=== PATIENT | female | born 1955 | race Caucasian/White ===

== ENCOUNTER → 2017-06-23 | Outpatient (CLI) | payer BC ==
[~2017-06-23] MED LIST: BUPR100T4 PO; CITA10TA8 PO; CYAN100020; LEVO75TA PO; MULT-506 PO; PRM/45 PO; TRAZ50TA35 PO
--- NOTE | 2017-06-23 17:24 | DIAGNOSTIC IMAGING REPORT ---
LUMBAR SPINE 5 VIEWS CLINICAL HISTORY: Low back pain and right lower extremity radiculopathy. FINDINGS: Five views of the lumbar spine are obtained. No prior studies are available for comparison at the time of dictation. The skeletal structures are osteopenic. There is no radiographic evidence of fracture or malalignment. Vertebral body height and alignment are maintained throughout the lumbar spine. Small anterior osteophytes are seen throughout. The transverse and spinous processes appear intact. There is mild to moderate degenerative disc space narrowing seen at L5-S1. Only mild disc space narrowing is seen at the remaining lumbar levels. There is multilevel degenerative endplate sclerosis. The bony pelvis is intact as imaged. The sacroiliac joints are normal in appearance. Surgical clips are present in the pelvis. There is a nonobstructed abdominal bowel gas pattern. A nonobstructing left renal calculus is questioned on the frontal view. IMPRESSION: 1. No acute bony abnormality is seen involving the lumbar spine. 2. Osteopenia and spondylotic change as above. Dictated: 06/23/2017 4:34 PM Transcribed: 06/23/2017 5:23 PM [place] Electronically signed by: Rivas Sharpe M.D. 06/23/2017 5:25 PM Dictated Date/Time: 06/23/2017 4:34 PM
== END | disposition home or self-care (01) ==
LOC: C.RAD1850 15:36
PROVIDERS: ATTEND Family Medicine
DX: M85.88 Other specified disorders of bone density and structure, other site (principal); M48.07 Spinal stenosis, lumbosacral region

== ENCOUNTER → 2017-11-24 | Outpatient (CLI) | payer OTHER | END | disposition home or self-care (01) | LOC: C.PAPS 15:46 | PROVIDERS: ATTEND Obstetrics & Gynecology | DX: Z12.4 Encounter for screening for malignant neoplasm of cervix (principal); Z78.0 Asymptomatic menopausal state ==

== ENCOUNTER → 2017-11-24 | Outpatient (CLI) | payer OTHER | END | disposition home or self-care (01) | LOC: C.LABSPEC 17:33 | PROVIDERS: ATTEND Obstetrics & Gynecology | DX: N89.8 Other specified noninflammatory disorders of vagina (principal) ==

== ENCOUNTER → 2018-01-15 | Outpatient (CLI) | payer OTHER ==
--- NOTE | 2018-01-16 07:46 | MAMMOGRAPHY REPORT ---
BILATERAL DIGITAL SCREENING MAMMOGRAM TOMOSYNTHESIS WITH CAD: 01/15/2018 CLINICAL HISTORY: Routine screening. The patient reported to the technologist that she has had bilat eral breast tenderness for 2 weeks. TECHNIQUE: Breast tomosynthesis in addition to standard 2D mammography was performed. Current study was also evaluated with a Computer Aided Detection (CAD) system. COMPARISON: Comparison is made to exams dated: 12/03/2016 mammogram, 08/16/2015 mammogram, 02/25/2014 mammogram, and 02/04/2011 mammogram - [facility]. BREAST COMPOSITION: The tissue of both breasts is heterogeneously dense, which may obscure small mas ses. FINDINGS: No suspicious masses, calcifications, or areas of architectural distortion are noted in ei ther breast. There has been no significant interval change compared to prior exams. Bilateral benign vascular calcifications are again noted. IMPRESSION: ACR BI-RADS CATEGORY 2: BENIGN There is no mammographic evidence of malignancy. A 1 year screening mammogram is recommended. Also r ecommend clinical follow-up for bilateral breast tenderness. The patient will receive written notifi cation of the results. Approximately 10% of breast cancers are not detected with mammography. A negative mammographic report should not delay biopsy if a clinically suggestive mass is present. Margot Ramirez M.D. ah/:01/15/2018 16:39:46 Director Human Services: Gely SPAERS)(M), [facility] letter sent: Normal 1/2 BI-RADS Code: ACR BI-RADS Category 2: Benign
== END | disposition home or self-care (01) ==
LOC: C.MAMM 11:36
PROVIDERS: ATTEND Family Medicine
DX: Z12.31 Encounter for screening mammogram for malignant neoplasm of breast (principal)

== ENCOUNTER 2024-05-14 11:05 | Observation (INO) ==
--- NOTE | 2024-05-05 13:57 | Anesthesiology Consultation ---
Date of Service May 05, 2024 Assessment & Plan (1) Upper airway cough syndrome: - check CBC with diff and BMP STAT am DOS. Fluid orders to anesthesiologist review of BMP DOS. - [place] pulmonology response: "If she is without complaints see no reason to delay surgery." I spoke with patient and she states symptoms fully resolved since 04/02/24 visit. - pulmonology office visit 04/02/24 [place]: "...Asthma: Patient was reassured that her spirometry and exhaled nitric oxide are normal...discussed simplifying her regiment to using Dulera on a daily basis or potentially discontinuing it and monitoring her symptoms. She is taken it under advisement and will consider her options. Cough: Suspect upper airway cough syndrome. Recommended restarting a regiment of chlorpheniramine, Sudafed, Flonase, and saline sinus irrigation. If she develops dry eyes associated with the antihistamine, this medication can be discontinued. Will plan on checking back with her in about 6 weeks time as she is scheduled to undergo her hysterectomy in May and needs to be in a stable respiratory standpoint. If she has continued issues, additional assessment including IgE level, eosinophil count, and referral to speech therapy for potential vocal cord dysfunction might be appropriate..." - Per treating machine operator on 05/05/24: No known infectious disease contacts, current infectious disease symptoms in past 10 days or COVID positive test result in the past 30 days. Chart Review Chart Review: Acceptable Risk for Surgery and Patient NOT seen in Pre Admission Testing History Surgery Operation Date: 05/14/24 09:40 Proposed Procedures p Robotic Hysterectomy, Bilateral Salpingo-Oophorectomy, Robotic Sacral Colpopexy, Cystoscopy - Jovi Anderson MD s Mid Urethral Sling - Jovi Anderson MD Height/Weight Height: 5 ft 6 in Weight: 80.739 kg Allergies Allergy/AdvReac Type Severity Reaction Status Date / Time codeine AdvReac Unknown "makes me Verified 05/05/24 12:20 feel crazy" meloxicam [From Mobic] AdvReac stomach Verified 05/05/24 12:20 pain Medications Home Medications Medication Instructions Recorded Confirmed Last Taken citalopram 20 mg tablet (Celexa) 20 mg PO QAM 09/09/18 05/05/24 10/06/18 levalbuterol tartrate 45 1 inh inhalation Q6H PRN Shortness 09/09/18 05/05/24 Unknown mcg/actuation aerosol inhaler Of Breath trazodone 50 mg tablet 50 mg PO HS PRN insomnia 11/28/21 05/05/24 Unknown ibuprofen 200 mg tablet (Advil) 400 mg (2 x 200 mg) PO DAILY PRN 07/08/22 05/05/24 Unknown pain #10 tabs beclomethasone dipropionate 80 1 inh inhalation BID #10.6 grams 08/12/22 05/05/24 Unknown mcg/actuation HFA breath activated aerosol (Qvar RediHaler) diclofenac sodium 1 % topical gel 2 g topical QID #100 grams 08/12/22 05/05/24 Unknown mometasone-formoterol HFA 200 2 puff inhalation BID #1 inhaler 06/18/23 05/05/24 Unknown mcg-5 mcg/actuation aerosol inhaler (Dulera) pantoprazole 40 mg tablet,delayed 40 mg PO Q12H #60 tabs 09/22/23 05/05/24 Unknown release estradiol 0.5 mg tablet 0.5 mg PO DAILY #90 tabs 11/10/23 05/05/24 Unknown fluticasone propionate 50 1 spray intranasal BID #18.2 mL 04/02/24 05/05/24 Unknown mcg/actuation nasal spray,suspension (Flonase Allergy Relief) sodium chloride, sodium See Rx Instructions .Route 04/02/24 05/05/24 Unknown bicarb-nasal rinse squeeze bottle .COMPLEX #50 ea with packet (Neilmed Sinus Rinse Complete with packet) bupropion HCl 300 mg 24 hr tablet, 300 mg PO QAM 05/05/24 05/05/24 Unknown extended release vuk-zjpvymvuvxhgv-bzvpjdmsvnmzc 1 tab PO QAM 05/05/24 05/05/24 Unknown tablet levothyroxine 125 mcg tablet 125 mcg PO QAM 05/05/24 05/05/24 Unknown lifitegrast 5 % eye drops in a 1 drp OPB BID 05/05/24 05/05/24 Unknown dropperette (Xiidra) medroxyprogesterone 2.5 mg tablet 2.5 mg PO QAM 05/05/24 05/05/24 Unknown Past Medical History Medical History Asthma hx, inhalers x2 and prn inh Chronic rhinitis Circadian rhythm sleep disorder, shift work type Depression Former smoker GERD (gastroesophageal reflux disease) only takes med prn, controls with diet Hx of hyperlipidemia Hypothyroidism IBS (irritable bowel syndrome) controls with diet Menopausal symptoms Organic hypersomnia Rhinitis Upper airway cough syndrome Vaginal discharge Past Family History Family History Mother Family history of reaction to anesthesia SLOW TO WAKE UP Dementia Father Family history of diabetes mellitus Diabetes Lymphoma, T-cell Sister Glaucoma Denies family history of Ovarian cancer Breast cancer Colorectal cancer Past Surgical History Surgical History History of appendectomy History of bilateral tubal ligation History of cataract extraction with lens replacement rt/lt History of colonoscopy History of dilatation and curettage History of esophagogastroduodenoscopy (EGD) History of foot surgery LEFT History of repair of rotator cuff right History of vein stripping 1985 Social History Smoking Status: Former smoker tobacco type: cigarettes Do You Dip or Chew Tobacco: No Smoking End Date: years ago Hx Alcohol Use: Yes Alcohol type: wine alcohol intake frequency: a few times a week Hx Substance Use: No substance use type: does not use Testing Electrocardiogram Date: 03/04/24 NSR, rate 61 bpm Possible LA enlargement Incomplete RBBB Nonspecific T wave abnormality Cannot rule out anterior infarct, age undetermined Chest X-Ray Date: 06/13/23 No acute process. Pulmonary Function Test Date: 04/13/24 FEV1 and FVC preserved however there appears to be truncation of the expiratory limb and clinical correlation is required.
--- NOTE | 2024-05-14 05:59 | History & Physical Report ---
Date of Service May 14, 2024 Assessment & Plan (1) Uterovaginal prolapse, incomplete: Plan: Patient has tried several pessaries in the past without success. We reviewed surgical options: 1. Vaginal hysterectomy, bso, uterosacral suspension, anterior colporrhaphy Vs 2. Robotic hysterectomy, bso, sacral colpopexy with mesh. Patient prefers robotic hysterectomy, bso, sacral colpopexy, cystoscopy. Risks of infection, bleeding, injury, pain, mesh exposure, adhesions, urinary incontinence, urinary retention were reviewed. Informed consent confirmed. Present on Admission?: Yes Admission and Anticipated Discharge Date Admission Date: 05/14/2024 Anticipated date of discharge: 05/15/24 History of Present Illness Chief Complaint: Vaginal prolapse Primary Care Provider: Blaise Mccrary MD Svitlana Carmona is a 67 year old female P 4 with uterovaginal prolapse here for robotic hysterectomy, bso, sacral colpopexy, cystoscopy. For the past few years, Svitlana Carmona has a vaginal bulge that becomes more symptomatic when she is on her feet or when lifting heavy items. It retracts when she sleeps overnight. No bleeding. Tried several pessaries but could not get the correct fit (either too small and dislodged or too big causing discomfort) Did have plans to have surgical correction, but was cancelled during the pandemic. Denies incontinence. Has occasional urgency, but denies frequency or nocturia. Feels that she empties well. On occasion, will have fecal urgency with loose stool. Denies incontinence. Otherwise will have normal bowel movements every day or every other day. Allergies Allergy/AdvReac Type Severity Reaction Status Date / Time codeine AdvReac Unknown "makes me Verified 05/05/24 12:20 feel crazy" meloxicam [From Mobic] AdvReac stomach Verified 05/05/24 12:20 pain Home Medications Medication Instructions Recorded Confirmed Type citalopram 20 mg tablet (Celexa) 20 mg PO QAM 09/09/18 05/05/24 History levalbuterol tartrate 45 1 inh inhalation Q6H PRN Shortness 09/09/18 05/05/24 History mcg/actuation aerosol inhaler Of Breath trazodone 50 mg tablet 50 mg PO HS PRN insomnia 11/28/21 05/05/24 History ibuprofen 200 mg tablet (Advil) 400 mg (2 x 200 mg) PO DAILY PRN 07/08/22 05/05/24 Rx pain #10 tabs beclomethasone dipropionate 80 1 inh inhalation BID #10.6 grams 08/12/22 05/05/24 Rx mcg/actuation HFA breath activated aerosol (Qvar RediHaler) diclofenac sodium 1 % topical gel 2 g topical QID #100 grams 08/12/22 05/05/24 Rx mometasone-formoterol HFA 200 2 puff inhalation BID #1 inhaler 06/18/23 05/05/24 Rx mcg-5 mcg/actuation aerosol inhaler (Dulera) pantoprazole 40 mg tablet,delayed 40 mg PO Q12H #60 tabs 09/22/23 05/05/24 Rx release estradiol 0.5 mg tablet 0.5 mg PO DAILY #90 tabs 11/10/23 05/05/24 Rx fluticasone propionate 50 1 spray intranasal BID #18.2 mL 04/02/24 05/05/24 Rx mcg/actuation nasal spray,suspension (Flonase Allergy Relief) sodium chloride, sodium See Rx Instructions .Route 04/02/24 05/05/24 Rx bicarb-nasal rinse squeeze bottle .COMPLEX #50 ea with packet (Neilmed Sinus Rinse Complete with packet) bupropion HCl 300 mg 24 hr tablet, 300 mg PO QAM 05/05/24 05/05/24 History extended release fmj-skgdtkusqsnuo-fzpsulnimthkk 1 tab PO QAM 05/05/24 05/05/24 History tablet levothyroxine 125 mcg tablet 125 mcg PO QAM 05/05/24 05/05/24 History lifitegrast 5 % eye drops in a 1 drp OPB BID 05/05/24 05/05/24 History dropperette (Xiidra) medroxyprogesterone 2.5 mg tablet 2.5 mg PO QAM 05/05/24 05/05/24 History Past Med/Surg History Problem List (Updated 05/14/24 @ 05:57 by Jovi Anderson MD) Uterovaginal prolapse, incomplete Upper airway cough syndrome Encounter for routine gynecological examination Overweight Dietary counseling and surveillance IBS (irritable bowel syndrome) Depression with anxiety Hyperlipidemia Obesity Female genital prolapse Postmenopausal HRT (hormone replacement therapy) GERD (gastroesophageal reflux disease) Hypothyroidism Asthma USES A COUPLE TIMES PER MONTH Shingles (Acute) 09/29/15 Rash and nonspecific skin eruption (Acute) 06/04/16 Allergic reaction (Acute) Medical History Asthma hx, inhalers x2 and prn inh Chronic rhinitis Circadian rhythm sleep disorder, shift work type Depression Former smoker GERD (gastroesophageal reflux disease) only takes med prn, controls with diet Hx of hyperlipidemia Hypothyroidism IBS (irritable bowel syndrome) controls with diet Menopausal symptoms Organic hypersomnia Rhinitis Upper airway cough syndrome Vaginal discharge Surgical History History of appendectomy History of bilateral tubal ligation History of cataract extraction with lens replacement rt/lt History of colonoscopy History of dilatation and curettage History of esophagogastroduodenoscopy (EGD) History of foot surgery LEFT History of repair of rotator cuff right History of vein stripping 1984 Family History Mother Family history of reaction to anesthesia SLOW TO WAKE UP Dementia Father Family history of diabetes mellitus Diabetes Lymphoma, T-cell Sister Glaucoma Denies family history of Ovarian cancer Breast cancer Colorectal cancer Social History (Updated 03/31/24 @ 10:16 by Samanta Morales LPN) Smoking Status: Former smoker Tobacco Type: Cigarettes Second Hand Exposure: Yes (hx as child); Do You Dip or Chew Tobacco: No; Hx Alcohol Use: Yes Alcohol type: wine Hx Substance Use: No Preferred Language: Frisian Communication Ability: Effective Hydraulic Technician Required: No Beliefs That Will Affect Care: None Current Living Situation: Alone Current Living Situation Comment: dtr will stay after sx. Feels Safe at Home: Yes Assistive Devices: Glasses Review of Systems Review of Systems: All systems reviewed & are unremarkable except as noted in HPI & below Physical Exam Constitutional: WD/WN, vitals as above Eyes: PERRL, conjunctivae normal, anicteric sclerae ENMT: external ear and nose normal, oropharynx normal Neck: trachea midline, no thyromegaly Respiratory: normal respiratory effort Cardiovascular: RRR, no murmur, no edema Gastrointestinal (Abdomen): normal bowel sounds, soft, nontender, no hepatosplenomegaly Musculoskeletal: no cyanosis or clubbing, extremities motor strength 5/5 Skin: no rashes, warm and dry Psychiatric: A+Ox3, euthymic affect Code Status & VTE Plan VTE Prophylaxis Plan VTE Prophylaxis will be ordered: Yes
[2024-05-14] MEDS ORDERED: ONDANSETRON INJ 2 MG/ML 2 ML VIAL IV PRN ×2 (11:17→16:21)
[2024-05-14] MEDS ORDERED: PROMETHAZINE HCL 6.25 MG in SODIUM CHLORIDE 0.9% 50 ML IV PRN (11:17)
[2024-05-14] MEDS ORDERED: HYDROmorphone INJ 1 MG/ML SYRINGE IV PRN (11:17)
[2024-05-14] MEDS ORDERED: ATROPINE SULFATE 0.1 MG/ML 10ML SYR IV PRN (11:17)
[2024-05-14] MEDS ORDERED: ePHEDrine sulfate 50 MG/ML AMP IV PRN (11:17)
[2024-05-14 11:32] LABS: Basophils # (auto) 0.06 K/uL (0.00-0.20); Basophils % (auto) 0.8 %; Eosinophils % (auto) 3.8 %; Hematocrit (blood only) 42.2 % (37.0-47.0); Immature Granulocytes # (auto) 0.01 K/uL (0.01-0.20); Immature Granulocytes % (auto) 0.1 %; Lymphocytes # (auto) 3.36 K/uL (1.20-3.40); Lymphocytes % (auto) 42.8 %; Mean Corpuscular Hemoglobin 31.9 pg (25.0-34.0); Mean Corpuscular Hgb Conc 33.2 g/dL (32.0-36.0); Mean Corpuscular Volume 96.1 fL (80.0-100.0); Monocytes # (auto) 0.57 K/uL (0.11-0.59); Monocytes % (auto) 7.3 %; Neutrophils # (auto) 3.55 K/uL (1.40-6.50); Neutrophils % (auto) 45.2 %; Platelet Count 291 K/uL (130-400); Red Blood Count 4.39 M/uL (4.20-5.40); White Blood Count 7.85 K/ul (4.8-10.8)
[2024-05-14 11:47] LABS: BUN Creatinine Ratio 17.6 (10-20); Calcium 9.6 mg/dl (8.6-10.3); Creatinine Clr Calc Pharmacy 79.4 ml/min; Est GFR (African American) 97.2 ml/min; Est GFR (Non-African American) 83.8 ml/min
[2024-05-14] MEDS: SODIUM CHLORIDE 0.9% 1,000 ML IV SCH (12:12)
[2024-05-14] MEDS ORDERED: DEXAMETHASONE SOD INJ 4 MG/ML VIAL ONE (12:13)
[2024-05-14] MEDS ORDERED: PHENYLEPHRINE HCL 10 MG/ML VIAL ONE (12:13)
[2024-05-14] MEDS ORDERED: PROPOFOL IV EMULSION 10 MG/ML 20 ML VIAL IV ONE (12:13)
[2024-05-14] MEDS ORDERED: LIDOCAINE 2% 2 ML VIAL/AMP(20MG/ML) INFIL ONE (12:13)
[2024-05-14] MEDS ORDERED: ONDANSETRON INJ 2 MG/ML 2 ML VIAL ONE (12:13)
[2024-05-14] MEDS ORDERED: KETOROLAC 30 MG/ML VIAL ONE (12:13)
[2024-05-14] MEDS ORDERED: ROCURONIUM BROMIDE 10 MG/ML 5 ML VIAL IV ONE ×2 (12:13→14:04)
[2024-05-14] MEDS ORDERED: SUGAMMADEX SODIUM 200 MG/2 ML VIAL IV ONE (12:14)
[2024-05-14] MEDS ORDERED: MIDAZOLAM HCL 1 MG/ML 2ML VIAL ONE (12:14)
[2024-05-14] MEDS ORDERED: fentaNYL citrate PF 100 MCG/2 ML VIAL ONE (12:14)
[2024-05-14] MEDS: metroNIDAZOLE 500 MG/100 ML BAG IV SCH (13:24)
[2024-05-14] MEDS: ceFAZolin 2000MG 2,000 MG/15 ML SYR IV SCH (13:35)
--- OUTSIDE RECORDS SUMMARY | 2024-05-14 13:42 | External Medical Summary | Summary of Care ---
Author Name Unknown Organization [facility] Address [address] [place] [address] Phone [phone] Care Team Providers Care Lead Quality Technician Name Role Phone Blaise Mccrary MD Primary Care Provider [phone] Encounter Details Date Type Department Care Team (Late st Contact Info) Description 05/12/2024 Orders Only [facility] [address] [place] [address] Ely Mills PA-C [address] [place] [id number] Preop testing* Allergies Active Allergy Reactions Criticality Noted Date Comments Influenza Virus Vaccine Muscle pain 04/09/2023 Meloxicam Nausea/vomiting 04/09/2023 Morphine And Codeine 01/19/2004 crazy, itchy Penicillins 01/19/2004 shortness of breath Pseudoephedrine 01/19/2004 insomnia documented as of this encounter (statuses as of 05/12/2024) Medications Medication Sig Dispensed Refills Start Date End Date Status ALBUTEROL 90 MCG/ACT IN AERSIndications:Asthm a, severity to be determined 2 puffs every 4 hrs. as needed for cough, wheeze, chest tightness or shortness of breath and prior exercise 1 6 01/19/2004 Active CELEXA 20 MG PO TABS Take 1 Tablet by mouth in the morning. 30 Tab 0 09/05/2010 Active traZODone (DESYREL) 50 MG Tablet 1 tab at bedtime as needed 10/30/2017 Active buPROPion (WELLBUTRIN) 100 MG Tablet Take 3 Tablets by mouth in the morning. Active Levothyroxine Sodium 125 MCG Oral Tablet (Levoxyl) Take 1 Tablet by mouth in the morning. 01/13/2023 Active Xiidra 5 % Ophthalmic Solution PLACE 1 DROP INTO EACH EYE TWICE DAILY 02/05/2023 Active Qvar RediHaler 80 MCG/ACT Inhalation Aerosol Breath Activated INHALE 2 PUFFS BY MOUTH 4 TIMES A DAY 12/12/2023 Active Estradiol 0.5 MG Oral Tablet (Estrace) Take 1 Tablet by mouth in the morning. 11/10/2023 Active Pantoprazole Sodium 40 MG Oral Tablet Delayed Release (Protonix) Take 1 Tablet by mouth in the morning and 1 Tablet before bedtime. 09/22/2023 Active Dulera 200-5 MCG/ACT Inhalation Aerosol Inhale 2 Puffs by mouth in the morning and 2 Puffs before bedtime. 09/22/2023 Active medroxyPROGESTERone 1.25 mg OR TABS Take by mouth daily. Active Vitamin B-12 25 MCG OR TABS Take by mouth daily. Active Vitamin D2 50 MCG (2000 UT) Oral Tablet Take 1 Tablet by mouth in the morning. Active documented as of this encounter (statuses as of 05/12/2024) Active Problems Problem Noted Date Diagnosed Date Travel advice encounter 11/05/2017 Other specified acquired hypothyroidism 09/05/20 10 Insomnia 01/19/2004 Overview: ICD-10 update of inactive term NONALLERGIC RHINITIS 01/19/2004 Conjunctivitis 01/19/2004 Asthma with severity to be determined 01/19/2004 Overview: ICD-10 update of inactive term URTICARIA - ACUTE 01/19/2004 documented as of this encounter (statuses as of 05/12/2024) Immunizations Name Administration Dates Next Due Yellow Fever Vaccine, Live (YF-Vax) 11/07/2017 documented as of this encounter Social History Tobacco Use Types Packs/Day Years Used Date Smoking Tobacco: Former Cigarettes Smokeless Tobacco: Never Comments:One half pack per w k. Alcohol Use Standard Drinks/Week Comments Yes 0 (1 standard drink = 0.6 oz pur e alcohol) 2 drinks/week Utilities Answer Date Recorded Do you have trouble paying y our heating, water, or electric bill? (Adult - for ages 18 years and over) Not on file 03/23/2024 Is your family able to pay t he heat, water, or electric bill? (Household - for ages 0-17 years) Not on file 03/23/2024 Does your family have access to good internet? (Household - for ages 0-17 years) Not on file 03/23/2024 Social Connections Answer Date Recorded How often do you feel lonely or isolated from those around you? (Adult - for ages 18 years and over) Not on file 03/23/2024 Sex and Gender Information Value Date Recorded Sex Assigned at Female 04/08/2023 12:08 PM EDT Gender Identity Female 04/08/2023 12:08 PM EDT Sexual Orientation Straight 04/08/2023 12 :08 PM EDT Job Start Date Occupation Industry Not on file Not on file Not on file documented as of this encounter Plan of Treatment Upcoming Encounters Date Type Department Care Team (Late st Contact Info) Description 05/26/2024 8:00 AM EDT Telemedicine Urogynecology [facility] [address] [place] [address] Jovi Anderson MD [address] [place] [id number] 06/23/2024 11:40 AM EDT Office Visit Urogynecology [facility] [address] [place] [address] Jovi Anderson MD [address] [place] [id number] Scheduled Orders Name Type Priority Associated Diagnoses Orde r Schedule TYPE AND SCREEN Lab Routine Preop testing 1 Occurrences starting 05/12/2024 until 06/12/2024 ABO/RH Lab Routine Preop testing 1 Occurrences starting 05/12/2024 until 06/12/2024 Health Maintenance Due Date Last Done Comments Lipid Panel 1957 Pneumococcal Vaccine: 65+ Years (1 of 2 - PCV) 1963 Depression Screening 1969 Hepatitis C Screening 1975 DTaP,Tdap,and Td Vaccines (1 - Tdap) 1976 Mammogram 1997 Cologuard 2002 Colonoscopy 2002 Colorectal Cancer Screening 2002 Fecal Occult Blood Test 2002 Sigmoidoscopy 2002 TSH 10/04/2011 10/04/2010, 06/08/1999 DXA Scan 2022 COVID-19 Vaccine (3 - 2022-2 4 season) 2023 01/09/2021, 12/19/2020 Influenza Vaccine (FLU shot) (#1) 2024 06/18/2013, 10/21/2012, 09/23/2011 Diabetes Screening 03/04/2027 03/04/2024, 06/08/1999 Zoster Vaccines Completed 01/28/2022, 10/19/2021 HPV (Gardasil) Vaccine Aged Out No lo nger eligible based on patient's age to complete this topic Hepatitis B Vaccine Aged Out No longe r eligible based on patient's age to complete this topic MENINGOCOCCAL (MENACTRA/MENVEO) Aged Out No longer eligible b ased on patient's age to complete this topic documented as of this encounter Medical Devices Not on filedocumented as of this encounter Visit Diagnoses Diagnosis Preop testing- Primary Preoperative examination, unspecified documented in this encounter Care Teams Lead Quality Technician Relationship Specialty Start Date End Date Blaise Mccrary MD [address] [place] [address] PCP - General Family Medicine 12/25/17 documented as of this encounter
--- OUTSIDE RECORDS SUMMARY | 2024-05-14 13:42 | External Medical Summary | Summary of Care ---
Author Name Unknown Organization [facility] Address [address] [facility] [address] Phone [phone] Care Team Providers Care Review Trainer Name Role Phone Blaise Mccrary MD Primary Care Provider [phone] Reason for Visit * Reason Onset Date Comments Order Request 03/25/2024 Encounter Details Date Type Department Care Team (Late st Contact Info) Description 03/25/2024 Telephone Urogynecology [facility] [address] [place] [address] Jovi Anderson MD [address] [place] [id number] Order Request Allergies Active Allergy Reactions Criticality Noted Date [...] on file documented as of this encounter Miscellaneous Notes * Telephone Encounter - Naveen Hull OSA - 05/12/2024 12:58 PM EDT Caller requesting the following information to be faxed: Name/Company of caller: [employer] Information requested to be faxed: Previous order Fax number: please call to acquire fax Attention to Name/Company: n/a Any additional information?: Stating they did not receive order and pt is having surgery on 05/14/24 * Telephone Encounter - Lea Fregoso OSA - 03/26/2024 11:13 AM EDT Faxed to [facility]. * Telephone Encounter - Ely Mills PA-C - 03/25/2024 9:56 AM EDT Order placed. Thanks! * Telephone Encounter - Lea Fregoso OSA - 03/25/2024 9:07 AM EDT Pt is having surgery done at [facility] on 05/14. She had to cancel her surgery on 03/25 at [facility] due to a sinus infection. She will need to have her Type and Screen redone at [facility]. Please order. Thanks documented in this encounter Plan of Treatment Upcoming Encounters Date Type Department Care Team (Late st Contact Info) Description 05/26/2024 8:00 AM EDT Telemedicine Urogynecology [facility] [address] [place] [address] Jovi Anderson MD [address] [place] [address] 06/23/2024 11:40 AM EDT Office Visit Urogynecology [facility] [address] [place] [address] Jovi Anderson MD [address] [place] [address] Health Maintenance Due Date Last Done Comments [...] unspecified documented in this encounter Care Teams Review Trainer Relationship Specialty Start Date End Date Blaise Mccrary MD [address] [place] [address] PCP - General Family Medicine 12/25/17 documented as of this encounter
--- OUTSIDE RECORDS SUMMARY | 2024-05-14 13:42 | External Medical Summary | Summary of Care ---
Author Name Unknown Organization [facility] Address [address] [place] [address] Phone [phone] Care Team Providers Care Linen Controller Name Role Phone Blaise Mccrary MD Primary Care Provider [phone] Encounter Details Date Type Department Care Team (Late st Contact Info) Description 05/12/2024 Result Scan Unspecified Department <No scans attached> Allergies Active Allergy Reactions Criticality Noted Date [...] 05/26/2024 8:00 AM EDT Telemedicine Urogynecology [facility] [address] [place] [id number] Jovi Anderson MD [address] [place] [address] 06/23/2024 11:40 AM EDT Office Visit Urogynecology [facility] [address] [place] [address] Jovi Anderson MD [address] [place] [address] Health Maintenance Due Date Last Done Comments [...] Not on filedocumented as of this encounter Procedures Procedure Name Priority Date/Time Associated Diagnosis Comments OUTSIDE LAB RESULTS 05/12/2024 documented in this encounter Results * OUTSIDE LAB RESULTS (05/12/2024) 05/12/2024 No Physician Data Unknown LABORATORY documented in this encounter Care Teams Linen Controller Relationship Specialty Start Date End Date Blaise Mccrary MD [address] [place] [address] PCP - General Family Medicine 12/25/17 documented as of this encounter
--- OUTSIDE RECORDS SUMMARY | 2024-05-14 13:42 | External Medical Summary | Summary of Care ---
Author Name Unknown Organization [facility] Address [address] [facility] [address] Phone [phone] Care Team Providers Care Oracle Database Developer Name Role Phone Blaise Mccrary MD Primary Care Provider [phone] Reason for Visit * Reason Onset Date Comments Order Request 05/12/2024 Encounter Details Date Type Department Care Team (Late st Contact Info) Description 05/12/[address] [facility] [address] [place] [id number] Jovi Anderson MD [address] [place] [id number] Order Request Allergies Active Allergy Reactions Criticality [...] encounter Miscellaneous Notes * Telephone Encounter - Annie Orta LPN - 05/12/2024 12:14 PM EDT Pt is at [facility] for her lab draw. They have no orders. No active orders in chart. Fax number is [phone]. documented in this encounter Plan of Treatment Upcoming Encounters Date Type Department Care Team (Late st Contact Info) Description 05/26/2024 8:00 AM EDT Telemedicine Urogynecology [facility] [address] [place] [address] Jovi Anderson MD [address] [place] [id number] 06/23/2024 11:40 AM EDT Office Visit Urogynecology [facility] [address] [place] [address] Jovi Anderson MD [address] [place] [id number] Health Maintenance Due Date Last Done Comments [...] Not on filedocumented as of this encounter Care Teams Oracle Database Developer Relationship Specialty Start Date End Date Blaise Mccrary MD [address] [place] [id number] PCP - General Family Medicine 12/25/17 documented as of this encounter
[2024-05-14] MEDS ORDERED: HYDROmorphone INJ 2 MG/ML SYR/VIAL ONE (14:05)
[2024-05-14] MEDS: LIDOCAINE 1%/EPINEPHRINE 1:100,000 50 ML VIAL ONE (15:45)
[2024-05-14] MEDS: BUPIVACAINE 0.5 % 5 MG/1 ML MPF 30ML VIAL ONE (15:45)
[2024-05-14] MEDS: METHYLENE BLUE 0.5% 10 ML VIAL ONE (15:57)
[2024-05-14] MEDS: PREMARIN VAG CRM 14 APPLN/30 GM TUBE ONE (15:57)
--- NOTE | 2024-05-14 16:20 | Operative Report ---
Post Operative Report Pre & Post Diagnosis Operation Date: 05/14/24 12:30 Pre-Op Diagnosis: Uterovaginal Prolapse, Complete Post-Op Diagnosis: Uterovaginal Prolapse, Complete, Urethral hypermobility, Occult DENA I identified the patient and participated in the time-out.: Yes Procedure Operation Date: 05/14/24 12:30 Actual Procedures p Robotic Hysterectomy, Bilateral Salpingo-Oophorectomy, Robotic Sacral Colpopexy, Cystoscopy - Jovi Anderson MD s Mid-Urethral Sling - Jovi Anderson MD Surgeon Jovi Anderson MD Ambulance Driver Ely Mills PA-C Estimated Blood Loss 50 Findings Consistent with Post-Op Diagnosis Grade 3 uterine prolapse, cystocele. Normal cystoscopy with excellent efflux of ureters. Fluids crystalloid Specimens cervix, uterus, tubes and ovaries Drains Harman catheter Anesthesia Type General Complications none Disposition Accompanied Patient To Recovery: Yes Disposition: Recovery Room Indications symptomatic uterovaginal prolapse Description of Procedure After Svitlana Carmona was correctly identified in the preoperative area, we reviewed the indications, risks, benefits, and alternatives. All questions answered. Patient desired to proceed and and informed consent was confirmed. She was then taken to the operating room and general anesthesia was given by anesthesia service. She was placed in dorsal lithotomy position and was prepped and draped in the usual sterile fashion. Timeout was performed. A Harman catheter was placed into the bladder. The cervix was serially dilated and a medium cup V-care uterine manipulator was applied. Attention was then focused to the umbilicus. An 8 mm incision was made. An 8 mm trocar with Optiview was advanced through the incision into the abdominal cavity. Inspection of the anterior abdominal wall revealed no adhesions. Two 8 mm trocar was placed on the left lateral abdomen and two 8 mm trocars were placed on the right abdomen. The patient was placed in Trendelenburg position. The robot was docked. The ureters were visualized bilaterally. The IP ligaments were bilaterally vessel sealed and transected. The round ligaments were bilaterally vessel sealed and transected. The bladder flap was developed. The uterine arteries were bilaterally dissected, vessel sealed, and transected. The colpotomy incision was made following the cervical cup. The cervix, uterus, tubes, and ovaries were delivered out the vagina and sent to pathology. The vaginal cuff was closed with 0 V-lock in two layers in a running fashion. The bladder was dissected off the vaginal for 6 cm distally. The rectum was dissected off the vagina for 8 cm distally. The peritoneum overlying the sacral promontory was incised and extended along the right mary-colic gutter. The Y mesh was secured to the anterior and posterior vaginal hanks with running 2-0 V- lock suture. The tail end of the graft was secured to the anterior longitudinal ligament below the sacral promontory with 3 interrupted sutures of CV-0 [place]- deb. The peritoneum was closed over the Y mesh with 2-0 V-lock suture in a running fashion. Excellent hemostasis was confirmed. The robot was undocked, the trocars were removed and the CO2 gas was allowed to recede. The incisions were closed with 4-0 Monocryl in a running fashion and dressed with surgical glue. Vaginally, the Harman catheter was removed and cystoscopy was performed with 250 ml of irrigation fluid. Inspection of the bladder dome, trigone, and urethra revealed no lesions and excellent efflux was demonstrated from each ureter. The cystoscope was removed and a Crede maneuver confirmed DENA. The vaginal mucosa overlying the mid-urethra was grasped with Allis clamps and infiltrated with 1% lidocaine with epinephrine. A midline incision was made with the scalpel. The mayr-urethral tissue was dissected bilaterally. The Solyx sling was implanted by inserting the anchors of the sling into the obturator internus muscle bilaterally with appropriate tensioning. Repeat cystoscopy revealed no lesions. The Harman catheter was inserted. The incision was closed with 2-0 Vicryl. The vagina was packed with estrogen cream and vaginal packing. All sponge lap and needle counts were correct x 2. Patient was extubated, awakened and sent to recovery room in good condition. I attest to the content of the Intraoperative Record and any orders documented therein. Any exceptions are noted below. No qualified resident was available. Ely Mills PA-C was a necessary specimen preparation assistant required for patient positioning, draping, retraction, wound closure, and robotic docking and instrument exchange.
[2024-05-14] MEDS: fentaNYL citrate PF 100 MCG/2 ML VIAL IV PRN (16:28)
--- NOTE | 2024-05-14 17:02 | Anesthesiology Progress Note ---
Date of Service May 14, 2024 Anesthesia Post Procedure Vital Signs Vital Signs: Temp Pulse Pulse Resp BP BP Pulse Ox 05/14/24 16:45 37.2 C 87 13 132/65 95 05/14/24 16:35 85 16 122/72 94 05/14/24 16:25 86 15 124/72 93 05/14/24 16:15 95 H 14 136/84 97 05/14/24 16:09 36.5 C 103 H 14 139/79 95 05/14/24 11:23 36.8 C 71 17 134/72 96 O2 Del Method O2 Flow Rate 05/14/24 16:45 Nasal Cannula 2 05/14/24 16:35 Nasal Cannula 2 05/14/24 16:25 Oxymask 2 05/14/24 16:15 Oxymask 11 05/14/24 16:09 Oxymask 11 05/14/24 11:23 Room Air Pain Intensity Abdomen: Pain Intensity: 6 Transfer of Care Handoff Completed per policy Notes Mental Status: alert / awake / arousable and participated in evaluation Patient Amnestic to Procedure: Yes Nausea / Vomiting: adequately controlled Pain: adequately controlled Airway Patency, RR, SpO2: stable & adequate BP & HR: stable & adequate Hydration State: stable & adequate Anesthetic Complications: no major complications apparent
[2024-05-14] MEDS: ACETAMINOPHEN 325 MG TAB PO PRN (18:52)
[2024-05-14] MEDS: IBUPROFEN 600 MG TAB PO PRN (20:34)
[2024-05-15 04:19] VITALS: PULSE 68
[2024-05-15] MEDS: buPROPion XL 300 MG TABCR PO SCH (06:24)
[2024-05-15] MEDS: LEVOTHYROXINE SODIUM 125 MCG TABLET PO SCH (06:24)
[2024-05-15 06:50] LABS: Basophils # (auto) 0.02 K/uL (0.00-0.20); Basophils % (auto) 0.2 %; Hematocrit (blood only) 36.6 % (37.0-47.0); Hemoglobin 12.4 g/dl (12.0-16.0); Immature Granulocytes # (auto) 0.04 K/uL (0.01-0.20); Immature Granulocytes % (auto) 0.4 %; Lymphocytes # (auto) 1.96 K/uL (1.20-3.40); Lymphocytes % (auto) 19.4 %; Mean Corpuscular Hgb Conc 33.9 g/dL (32.0-36.0); Mean Corpuscular Volume 94.6 fL (80.0-100.0); Mean Platelet Volume 10.3 fL (9.4-12.4); Monocytes # (auto) 0.72 K/uL (0.11-0.59); Monocytes % (auto) 7.1 %; Neutrophils # (auto) 7.34 K/uL (1.40-6.50); Neutrophils % (auto) 72.9 %; Platelet Count 263 K/uL (130-400); RDW Standard Deviation 42.1 fL (36.4-46.3); Red Blood Count 3.87 M/uL (4.20-5.40); White Blood Count 10.08 K/ul (4.8-10.8)
[2024-05-15 07:20] LABS: BUN Creatinine Ratio 17.2 (10-20); Calcium 8.5 mg/dl (8.6-10.3); Creatinine Clr Calc Pharmacy 91.9 ml/min; Est GFR (Non-African American) 92.3 ml/min
[2024-05-15 08:36] VITALS: RESP 18; TEMP 98.6; O2SAT 94
--- NOTE | 2024-05-15 08:42 | Progress Note ---
Date of Service May 15, 2024 Assessment & Plan (1) Uterovaginal prolapse, incomplete: Plan: Patient has tried several pessaries in the past without success. We reviewed surgical options: 1. Vaginal hysterectomy, bso, uterosacral suspension, anterior colporrhaphy Vs 2. Robotic hysterectomy, bso, sacral colpopexy with mesh. Patient prefers robotic hysterectomy, bso, sacral colpopexy, cystoscopy. Risks of infection, bleeding, injury, pain, mesh exposure, adhesions, urinary incontinence, urinary retention were reviewed. Informed consent confirmed. POD#1 s/p robotic hysterectomy, bso, sacral colpopexy, sling, and cystoscopy. Patient doing well. Post op labs are normal. Voiding trial, anticipate discharge home. Procedure and findings reviewed with patient. Post op instructions reviewed. All questions answered. Follow up in 2 weeks and 6 weeks. Present on Admission?: Yes Admission and Anticipated Discharge Date Admission Date: May 14, 2024 Anticipated date of discharge: 05/15/24 Subjective feeling well. Pain well controlled with Ibuprofen. Denies SOB or CP or Nausea Review of Systems Review of Systems: All systems reviewed & are unremarkable except as noted in HPI & below Physical Exam Constitutional: WD/WN, vitals as above Eyes: PERRL, conjunctivae normal, anicteric sclerae ENMT: external ear and nose normal, oropharynx normal Neck: trachea midline, no thyromegaly Respiratory: normal respiratory effort Cardiovascular: RRR, no murmur, no edema Gastrointestinal (Abdomen): normal bowel sounds, soft, nontender, no hepatosplenomegaly Musculoskeletal: no cyanosis or clubbing, extremities motor strength 5/5 Skin: no rashes, warm and dry Psychiatric: A+Ox3, euthymic affect Results & Data Vital Signs (Past 12 Hours) Vital Signs Temp Pulse Pulse Resp BP Pulse Ox O2 Del Method 05/15/24 08:20 37 C 68 18 108/65 94 Room Air 05/15/24 06:00 96 Nasal Cannula 05/15/24 04:00 36.7 C 68 16 106/67 96 Nasal Cannula 05/14/24 23:15 36.7 C 69 16 114/71 95 Nasal Cannula 05/14/24 22:30 91 Room Air 05/14/24 22:25 95 Nasal Cannula 05/14/24 21:00 94 Nasal Cannula 05/14/24 20:56 96 Nasal Cannula O2 Flow Rate 05/15/24 08:20 05/15/24 06:00 1 05/15/24 04:00 1 05/14/24 23:15 1 05/14/24 22:30 0 05/14/24 22:25 1 05/14/24 21:00 1 05/14/24 20:56 2
--- NOTE | 2024-05-15 08:56 | Discharge Summary ---
Date of Service May 15, 2024 Admission HPI Per Admitting Provider Svitlana Carmona is a 67 year old female P 4 with uterovaginal prolapse here for robotic hysterectomy, bso, sacral colpopexy, cystoscopy. For the past few years, Svitlana Carmona has a vaginal bulge that becomes more s ymptomatic when she is on her feet or when lifting heavy items. It retracts when she sleeps overnight. No bleeding. Tried several pessaries but could not get the correct fit (either too small and dislodged or too big causing discomfort) Did have plans to have surgical correction, but was cancelled during the pandemic. Denies incontinence. Has occasional urgency, but denies frequency or nocturia. Feels that she empties well. On occasion, will have fecal urgency with loose stool. Denies incontinence. Otherwise will have normal bowel movements every day or every other day. Admission Exam (Per Admitting) Constitutional WD/WN, vitals as above Eyes PERRL, conjunctivae normal, anicteric sclerae ENMT external ear and nose normal, oropharynx normal Neck trachea midline, no thyromegaly Respiratory normal respiratory effort Cardiovascular RRR, no murmur, no edema Gastrointestinal (Abdomen) normal bowel sounds, soft, nontender, no hepatosplenomegaly Musculoskeletal no cyanosis or clubbing, extremities motor strength 5/5 Skin no rashes, warm and dry Psychiatric A+Ox3, euthymic affect Discharge Data Procedures Performed Operation Date: 05/14/24 12:30 Actual Procedures p Robotic Hysterectomy, Bilateral Salpingo-Oophorectomy, Robotic Sacral Colpopexy, Cystoscopy - Jovi Anderson MD s Mid-Urethral Sling - Jovi Anderson MD Hospital Course (1) Uterovaginal prolapse, incomplete: Patient has tried several pessaries in the past without success. We reviewed surgical options: 1. Vaginal hysterectomy, bso, uterosacral suspension, anterior colporrhaphy Vs 2. Robotic hysterectomy, bso, sacral colpopexy with mesh. Patient prefers robotic hysterectomy, bso, sacral colpopexy, cystoscopy. Risks of infection, bleeding, injury, pain, mesh exposure, adhesions, urinary incontinence, urinary retention were reviewed. Informed consent confirmed. POD#1 s/p robotic hysterectomy, bso, sacral colpopexy, sling, and cystoscopy. Patient doing well. Post op labs are normal. Voiding trial, anticipate discharge home. Procedure and findings reviewed with patient. Post op instructions reviewed. All questions answered. Follow up in 2 weeks and 6 weeks.
[2024-05-15 10:11] VITALS: BP 134/72
== END 2024-05-15 10:54 | disposition home or self-care (01) ==
LOC: ASU 11:05 → PACUINP 11:05 → 4E1 20:07